=== PATIENT | male | born 1995 | race African-American/Black ===

== ENCOUNTER 2019-02-05 11:52 | Emergency (ER) | payer MEDICAID ==
[~2019-02-05] VITALS: Ht 177.8 cm; Wt 73.0 kg
[2019-02-05 11:56] VITALS: BP 126/76
== END 2019-02-05 12:40 | disposition left against medical advice (07) ==
LOC: ER 12:05
DX: R46.2 Strange and inexplicable behavior (principal); R03.0 Elevated blood-pressure reading, without diagnosis of hypertension
CPT/HCPCS: 99284